=== PATIENT | female | born 1975 | race Caucasian/White ===

== ENCOUNTER 2025-01-31 20:58 | Emergency (ER) | payer MEDICAID, OTHER ==
[~2025-01-31] VITALS: Ht 165.1 cm; Wt 68.0 kg
[2025-01-31 20:59] VITALS: TEMP 98
[2025-01-31] MEDS ORDERED: METOCLOPRAMIDE HCL 10 MG/2 ML VIAL IV ONE (21:30)
[2025-01-31] MEDS ORDERED: LOPERAMIDE HCL (2 MG CAP) 2 MG CAPSULE ONE (21:35)
[2025-01-31] MEDS ORDERED: CLONIDINE HCL 0.1 MG TABLET ONE (21:35)
[2025-01-31 21:38] VITALS: BP 151/88
[2025-01-31] MEDS: LOPERAMIDE HCL (2 MG CAP) 2 MG CAPSULE PO ONE (21:38)
[2025-01-31] MEDS: CLONIDINE HCL 0.1 MG TABLET PO ONE (21:38)
[2025-01-31] MEDS ORDERED: ONDA4TAB5 PO (21:46)
[2025-01-31] MEDS ORDERED: CLON0.1T PO (21:46)
[2025-01-31] MEDS ORDERED: LOPE-195 PO (21:46)
[2025-01-31 21:57] LABS: BASOPHILS # (AUTO) 0.1 K/uL (0.0-0.2); BASOPHILS % (AUTO) 0.7 % (0.0-2.0); EOSINOPHILS # (AUTO) 0.1 K/uL (0.0-0.7); EOSINOPHILS % (AUTO) 1.2 % (0.0-6.0); HEMATOCRIT 40 % (33-45); HEMOGLOBIN 12.9 g/dL (11.5-14.8); LYMPHOCYTES # (AUTO) 4.2 K/uL (0.8-4.8); LYMPHOCYTES % (AUTO) 35.7 % (20.0-44.0); MEAN CORPUSCULAR HEMOGLOBIN 27 PG (26.0-33.0); MEAN CORPUSCULAR HGB CONC 33 g/dl (31.0-36.0); MEAN CORPUSCULAR VOLUME 82 fL (82-100); MONOCYTES # (AUTO) 0.9 K/uL (0.1-1.30); MONOCYTES % (AUTO) 7.8 % (2.0-12.0); NEUTROPHILS # (AUTO) 6.4 K/uL (1.8-8.9); NEUTROPHILS % (AUTO) 54.6 % (43.0-81.0); PLATELET COUNT (AUTO) 374 K/uL (150-450); RED BLOOD CELL COUNT(AUTO) 4.85 MIL/uL (4.0-5.2); WHITE BLOOD COUNT (AUTO) 11.7 K/uL (4.3-11.0)
[2025-01-31 22:04] LABS: CALCIUM, SERUM 9.5 mg/dL (8.5-10.1); CREATININE 1.1 mg/dL (0.6-1.3)
[2025-01-31 22:10] LABS: ALBUMIN 3.6 g/dL (3.4-5.0); BILIRUBIN,DIRECT 0.1 mg/dL (0.0-0.2); BILIRUBIN,TOTAL 0.4 mg/dL (0.2-1.0)
[2025-01-31] MEDS ORDERED: METOCLOPRAMIDE HCL 10 MG/2 ML VIAL ONE (22:51)
[2025-01-31] MEDS: METOCLOPRAMIDE HCL 10 MG/2 ML VIAL IM ONE (22:51)
[2025-01-31 23:54] VITALS: O2SAT 99
== END 2025-01-31 23:55 | disposition home or self-care (01) ==
LOC: ER 21:00
DX: F11.23 Opioid dependence with withdrawal (principal); R10.9 Unspecified abdominal pain; R11.2 Nausea with vomiting, unspecified; Z59.00 Homelessness unspecified
CPT/HCPCS: 99283; 96372; 85025; 80048; 83690; 80076; J2765; 36415